=== PATIENT | male | born 1940 | race Caucasian/White ===

== ENCOUNTER 2019-04-05 12:00 | Inpatient (IN) ==
[2019-04-05] MEDS ORDERED: Mag Hydrox/Al Hydrox/Simeth 30 ML UDC PO PRN (17:24)
[2019-04-05] MEDS ORDERED: Sennosides/Docusate Sodium TABLET PO PRN (17:25)
[2019-04-05] MEDS: Melatonin 3 MG TABLET PO PRN (20:57)
[2019-04-05] MEDS: cloNIDine HCl 0.1 MG TABLET PO PRN (20:58)
[2019-04-05] MEDS: *HR* Heparin 5,000 UNIT/ML VIAL SQ SCH (20:58)
[2019-04-05] MEDS: Clobetasol Propionate 0.05% 15 GM Cream Tube TP SCH (21:05)
[2019-04-06] MEDS: *HR* Heparin 5,000 UNIT/ML VIAL SQ SCH ×3 (05:04→20:03)
[2019-04-06 05:55] LABS: Basophils # 0.1 K/mcL (0.0-0.2); Basophils % 0.4 %; Eosinophils # 0.4 K/mcL (0.0-0.6); Eosinophils % 2.4 %; Hemoglobin 11.1 g/dL (12.9-16.9); Immature Granulocytes % 0.7 % (0-4); Lymphocytes # 1.1 K/mcL (0.6-4.6); Lymphocytes % 7.1 %; Mean Corpuscular HGB Conc 34.7 g/dL (31.6-35.5); Mean Corpuscular Hemoglobin 31.4 pg (28.0-33.3); Mean Corpuscular Volume 90.4 fL (83.0-100.0); Mean Platelet Volume 10.3 fL (9.4-12.4); Monocytes # 1.3 K/mcL (0.0-1.3); Neutrophils # 12.9 K/mcL (1.6-8.9); Platelet Count 143 K/mcL (140-400); Red Blood Count 3.54 M/mcL (4.19-5.50); Red Cell Distribution Width 12.8 % (11.5-14.5); Segmented Neutrophils % 81.4 %; White Blood Count 15.8 K/mcL (4.3-11.1)
[2019-04-06 06:01] LABS: INR 1.3; Prothrombin Time 14.5 Seconds (9.4-12.1)
[2019-04-06 06:02] LABS: Activated Partial Thrombo Time 33.3 Seconds (26.0-36.0)
[2019-04-06 06:10] LABS: Calcium 8.6 mg/dL (8.6-10.3); Magnesium 2.1 mg/dL (1.6-2.6); Potassium 4.3 mEq/L (3.5-5.1)
[2019-04-06 06:23] LABS: Thyroid Stimulating Hormone 2.945 mcIU/mL (0.340-5.600)
[2019-04-06] MEDS ORDERED: Nicotine 21 MG PATCH.TD24 TD SCH (09:00)
[2019-04-06] MEDS: Clobetasol Propionate 0.05% 15 GM Cream Tube TP SCH ×2 (09:21→20:03)
[2019-04-06] MEDS: amLODIPine 5 MG TABLET PO SCH (09:29)
[2019-04-06] MEDS: Aspirin 325 MG TABLET PO SCH (09:29)
[2019-04-06] MEDS: 0.9 % Sodium Chloride 1,000 ML IVC SCH (15:48)
[2019-04-06] MEDS: Melatonin 3 MG TABLET PO PRN (20:03)
[2019-04-07] MEDS ORDERED: Furosemide 40 MG/4 ML VIAL IVP ONE (00:07)
[2019-04-07] MEDS ORDERED: Furosemide 40 MG/4 ML VIAL ONE (00:09)
[2019-04-07] MEDS: cloNIDine HCl 0.1 MG TABLET PO PRN (00:16)
[2019-04-07 00:24] LABS: Basophils # 0.1 K/mcL (0.0-0.2); Basophils % 0.5 %; Eosinophils # 0.7 K/mcL (0.0-0.6); Eosinophils % 3.8 %; Hematocrit 35.4 % (37.5-50.1); Hemoglobin 12.3 g/dL (12.9-16.9); Immature Granulocytes % 0.6 % (0-4); Lymphocytes # 1.8 K/mcL (0.6-4.6); Lymphocytes % 9.5 %; Mean Corpuscular HGB Conc 34.7 g/dL (31.6-35.5); Mean Corpuscular Hemoglobin 31.3 pg (28.0-33.3); Mean Corpuscular Volume 90.1 fL (83.0-100.0); Mean Platelet Volume 10.5 fL (9.4-12.4); Monocytes # 1.5 K/mcL (0.0-1.3); Monocytes % 7.9 %; Neutrophils # 14.4 K/mcL (1.6-8.9); Platelet Count 175 K/mcL (140-400); Red Blood Count 3.93 M/mcL (4.19-5.50); Red Cell Distribution Width 12.6 % (11.5-14.5); Segmented Neutrophils % 77.7 %; White Blood Count 18.5 K/mcL (4.3-11.1)
[2019-04-07 00:43] LABS: Calcium 8.7 mg/dL (8.6-10.3); Potassium 4.4 mEq/L (3.5-5.1)
[2019-04-07 01:26] LABS: Bilirubin,Urine Negative (Negative); Blood,Urine Small (Negative); Clarity,Urine Clear (Clear); Color,Urine Yellow (Yellow); Glucose,Urine (UA) Normal (Normal); Ketones,Urine Negative (Negative); Leukocyte Esterase,Urine Negative (Negative); Nitrite,Urine Negative (Negative); Protein,Urine 100 mg/dL (Neg-Trace); Specific Gravity,Urine 1.015 (1.010-1.025); Urobilinogen,Urine Normal (Normal)
[2019-04-07 01:37] LABS: Bacteria,Urine Few per hpf (None-Few); Granular Casts,Urine Few per lpf (None Seen); Squamous Epithelial Cell,Urine Few per lpf (None-Few); WBC,Urine 0-3 per hpf (0-3)
[2019-04-07] MEDS: *HR* Heparin 5,000 UNIT/ML VIAL SQ SCH ×2 (05:09→14:12)
[2019-04-07 06:25] LABS: Basophils # 0.1 K/mcL (0.0-0.2); Basophils % 0.3 %; Eosinophils # 0.2 K/mcL (0.0-0.6); Eosinophils % 1.3 %; Hemoglobin 11.4 g/dL (12.9-16.9); Immature Granulocytes % 0.5 % (0-4); Lymphocytes # 0.9 K/mcL (0.6-4.6); Lymphocytes % 6.1 %; Mean Corpuscular HGB Conc 34.5 g/dL (31.6-35.5); Mean Corpuscular Hemoglobin 31.3 pg (28.0-33.3); Mean Corpuscular Volume 90.7 fL (83.0-100.0); Mean Platelet Volume 10.3 fL (9.4-12.4); Monocytes # 1.3 K/mcL (0.0-1.3); Monocytes % 8.4 %; Neutrophils # 12.5 K/mcL (1.6-8.9); Platelet Count 163 K/mcL (140-400); Red Blood Count 3.64 M/mcL (4.19-5.50); Red Cell Distribution Width 12.7 % (11.5-14.5); Segmented Neutrophils % 83.4 %
[2019-04-07 06:45] LABS: Albumin 3.5 g/dL (3.5-5.7); Albumin/Globulin Ratio 1.2 (1.1-2.2); Bilirubin,Total 0.6 mg/dL (0.3-1.0); Calcium 8.4 mg/dL (8.6-10.3); Globulin 2.9 g/dL (2.4-3.5); Magnesium 2.2 mg/dL (1.6-2.6); Potassium 4.4 mEq/L (3.5-5.1); Total Protein 6.4 g/dL (6.4-8.9)
[2019-04-07] MEDS: 0.9 % Sodium Chloride 1,000 ML IVC SCH (07:08)
[2019-04-07] MEDS: Aspirin 325 MG TABLET PO SCH (08:07)
[2019-04-07] MEDS: Clobetasol Propionate 0.05% 15 GM Cream Tube TP SCH (08:07)
[2019-04-07] MEDS: amLODIPine 5 MG TABLET PO SCH (08:07)
[2019-04-07 15:37] VITALS: BP 155/72
[2019-04-10 09:07] LABS: Troponin I 0.05 ng/mL (< 0.04)
== END 2019-04-07 17:05 | disposition short-term general hospital (02) | DRG 57 ==
LOC: INPGRE 16:44

== ENCOUNTER 2019-04-13 11:34 | Inpatient (IN) ==
[2019-04-13] MEDS ORDERED: Mag Hydrox/Al Hydrox/Simeth 30 ML UDC PO PRN (15:57)
[2019-04-13] MEDS ORDERED: Ondansetron ODT 4 MG TAB.RAPDIS SL PRN (15:57)
[2019-04-13] MEDS ORDERED: levoFLOXacin 500 MG TABLET PO SCH (16:00)
[2019-04-13] MEDS ORDERED: metroNIDAZOLE 500 MG TABLET PO SCH (16:15)
[2019-04-13] MEDS: *HR* Heparin 5,000 UNIT/ML VIAL SQ SCH ×2 (17:09→23:50)
[2019-04-13 19:28] LABS: ABG Base Excess -2 mEq/L (-2 to 3); ABG HCO3 23 mEq/L (21-27); ABG Oxygen Saturation 96 % (95-98); ABG PCO2 39 mmHg (35-45); ABG PH 7.38 pH Units (7.32-7.45); ABG PO2 80 mmHg (85-104); ABG TCO2 24 mEq/L (20-26)
[2019-04-13] MEDS: Sennosides/Docusate Sodium TABLET PO SCH (22:03)
[2019-04-13] MEDS: metroNIDAZOLE 500 MG TABLET PO SCH (22:03)
[2019-04-13] MEDS: Clobetasol Propionate 0.05% 15 GM Cream Tube TP SCH (22:04)
[2019-04-14 05:36] LABS: Albumin 3.3 g/dL (3.5-5.7); Albumin/Globulin Ratio 1.1 (1.1-2.2); Bilirubin,Total 0.5 mg/dL (0.3-1.0); Calcium 8.7 mg/dL (8.6-10.3); Magnesium 2.8 mg/dL (1.6-2.6); Potassium 4.6 mEq/L (3.5-5.1); Total Protein 6.3 g/dL (6.4-8.9)
[2019-04-14 05:40] LABS: Basophils # 0.1 K/mcL (0.0-0.2); Basophils % 0.7 %; Eosinophils % 5.9 %; Hematocrit 34.3 % (37.5-50.1); Hemoglobin 11.7 g/dL (12.9-16.9); Immature Granulocytes % 1.2 % (0-4); Lymphocytes # 1.6 K/mcL (0.6-4.6); Lymphocytes % 9.6 %; Mean Corpuscular HGB Conc 34.1 g/dL (31.6-35.5); Mean Corpuscular Hemoglobin 30.7 pg (28.0-33.3); Mean Platelet Volume 10.1 fL (9.4-12.4); Neutrophils # 12.9 K/mcL (1.6-8.9); Platelet Count 347 K/mcL (140-400); Red Blood Count 3.81 M/mcL (4.19-5.50); Red Cell Distribution Width 13.1 % (11.5-14.5); Segmented Neutrophils % 76.6 %; White Blood Count 16.8 K/mcL (4.3-11.1)
[2019-04-14] MEDS ORDERED: levoFLOXacin 750 MG TABLET PO SCH (09:00)
[2019-04-14] MEDS ORDERED: levoFLOXacin 750 MG TABLET PO ONE (10:00)
[2019-04-14] MEDS: Aspirin Enteric Coated 325 MG Tablet PO SCH (10:02)
[2019-04-14] MEDS: *HR* Heparin 5,000 UNIT/ML VIAL SQ SCH ×2 (10:03→17:34)
[2019-04-14] MEDS: metroNIDAZOLE 500 MG TABLET PO SCH ×3 (10:04→22:11)
[2019-04-14] MEDS: Folic Acid 1 MG TABLET PO SCH (10:05)
[2019-04-14] MEDS: Cyanocobalamin (B-12) 1,000 MCG TABLET PO SCH (10:05)
[2019-04-14] MEDS: amLODIPine 5 MG TABLET PO SCH (10:07)
[2019-04-14] MEDS: Sennosides/Docusate Sodium TABLET PO SCH ×2 (10:09→22:11)
[2019-04-14] MEDS: Clobetasol Propionate 0.05% 15 GM Cream Tube TP SCH ×2 (10:14→22:12)
[2019-04-14] MEDS: 0.9 % Sodium Chloride 1,000 ML IVC SCH (11:14)
[2019-04-15] MEDS: *HR* Heparin 5,000 UNIT/ML VIAL SQ SCH ×4 (00:31→23:55)
[2019-04-15 05:55] LABS: Hematocrit 32.4 % (37.5-50.1); Mean Corpuscular Volume 91.3 fL (83.0-100.0); Mean Platelet Volume 10.1 fL (9.4-12.4); Platelet Count 346 K/mcL (140-400); Red Blood Count 3.55 M/mcL (4.19-5.50); White Blood Count 15.3 K/mcL (4.3-11.1)
[2019-04-15 06:10] LABS: Calcium 8.6 mg/dL (8.6-10.3); Potassium 4.5 mEq/L (3.5-5.1)
[2019-04-15] MEDS: 0.9 % Sodium Chloride 1,000 ML IVC SCH (06:12)
[2019-04-15] MEDS: metroNIDAZOLE 500 MG TABLET PO SCH ×2 (08:02→16:25)
[2019-04-15] MEDS: Folic Acid 1 MG TABLET PO SCH (08:02)
[2019-04-15] MEDS: Sennosides/Docusate Sodium TABLET PO SCH ×2 (08:03→21:01)
[2019-04-15] MEDS: amLODIPine 5 MG TABLET PO SCH (08:03)
[2019-04-15] MEDS: Cyanocobalamin (B-12) 1,000 MCG TABLET PO SCH (08:03)
[2019-04-15] MEDS: Clobetasol Propionate 0.05% 15 GM Cream Tube TP SCH ×2 (08:19→21:02)
[2019-04-15] MEDS: Aspirin Enteric Coated 325 MG Tablet PO SCH (08:19)
[2019-04-16] MEDS: 0.9 % Sodium Chloride 1,000 ML IVC SCH ×2 (01:07→19:55)
[2019-04-16 05:10] LABS: Hematocrit 32.5 % (37.5-50.1); Mean Corpuscular HGB Conc 33.8 g/dL (31.6-35.5); Mean Corpuscular Hemoglobin 30.6 pg (28.0-33.3); Mean Corpuscular Volume 90.5 fL (83.0-100.0); Mean Platelet Volume 10.2 fL (9.4-12.4); Platelet Count 380 K/mcL (140-400); Red Blood Count 3.59 M/mcL (4.19-5.50); Red Cell Distribution Width 13.1 % (11.5-14.5); White Blood Count 15.8 K/mcL (4.3-11.1)
[2019-04-16 05:27] LABS: Calcium 8.5 mg/dL (8.6-10.3); Potassium 4.7 mEq/L (3.5-5.1)
[2019-04-16] MEDS: Sennosides/Docusate Sodium TABLET PO SCH ×2 (07:30→19:57)
[2019-04-16] MEDS: *HR* Heparin 5,000 UNIT/ML VIAL SQ SCH ×3 (07:30→23:34)
[2019-04-16] MEDS: amLODIPine 5 MG TABLET PO SCH (07:30)
[2019-04-16] MEDS: Aspirin Enteric Coated 325 MG Tablet PO SCH (07:31)
[2019-04-16] MEDS: Cyanocobalamin (B-12) 1,000 MCG TABLET PO SCH (07:31)
[2019-04-16] MEDS: Folic Acid 1 MG TABLET PO SCH (07:31)
[2019-04-16] MEDS: cloNIDine HCl 0.1 MG TABLET PO PRN (07:42)
[2019-04-16] MEDS: Clobetasol Propionate 0.05% 15 GM Cream Tube TP SCH ×2 (07:43→19:57)
[2019-04-17 06:08] LABS: Basophils # 0.1 K/mcL (0.0-0.2); Basophils % 0.7 %; Eosinophils # 0.9 K/mcL (0.0-0.6); Eosinophils % 6.1 %; Hematocrit 32.7 % (37.5-50.1); Immature Granulocytes % 1.6 % (0-4); Lymphocytes # 1.5 K/mcL (0.6-4.6); Lymphocytes % 10.7 %; Mean Corpuscular HGB Conc 33.6 g/dL (31.6-35.5); Mean Corpuscular Hemoglobin 31.1 pg (28.0-33.3); Mean Corpuscular Volume 92.4 fL (83.0-100.0); Mean Platelet Volume 10.4 fL (9.4-12.4); Monocytes # 1.1 K/mcL (0.0-1.3); Monocytes % 7.5 %; Platelet Count 349 K/mcL (140-400); Red Blood Count 3.54 M/mcL (4.19-5.50); Red Cell Distribution Width 13.3 % (11.5-14.5); Segmented Neutrophils % 73.4 %; White Blood Count 14.1 K/mcL (4.3-11.1)
[2019-04-17 06:14] LABS: Neutrophils # 10.4 K/mcL (1.6-8.9)
[2019-04-17 06:43] LABS: Albumin 3.1 g/dL (3.5-5.7); Albumin/Globulin Ratio 1.1 (1.1-2.2); Bilirubin,Total 0.4 mg/dL (0.3-1.0); Calcium 8.3 mg/dL (8.6-10.3); Globulin 2.9 g/dL (2.4-3.5); Magnesium 2.5 mg/dL (1.6-2.6); Potassium 4.7 mEq/L (3.5-5.1)
[2019-04-17] MEDS: amLODIPine 5 MG TABLET PO SCH (09:32)
[2019-04-17] MEDS: Cyanocobalamin (B-12) 1,000 MCG TABLET PO SCH (09:32)
[2019-04-17] MEDS: Aspirin Enteric Coated 325 MG Tablet PO SCH (09:33)
[2019-04-17] MEDS: Clobetasol Propionate 0.05% 15 GM Cream Tube TP SCH ×2 (09:33→20:54)
[2019-04-17] MEDS: Sennosides/Docusate Sodium TABLET PO SCH ×2 (09:33→20:46)
[2019-04-17] MEDS: *HR* Heparin 5,000 UNIT/ML VIAL SQ SCH ×2 (09:33→17:05)
[2019-04-17] MEDS: Folic Acid 1 MG TABLET PO SCH (09:33)
[2019-04-17] MEDS: 0.9 % Sodium Chloride 1,000 ML IVC SCH (12:11)
[2019-04-17] MEDS: cloNIDine HCl 0.1 MG TABLET PO PRN (20:46)
[2019-04-18] MEDS: *HR* Heparin 5,000 UNIT/ML VIAL SQ SCH ×3 (01:13→16:17)
[2019-04-18] MEDS: 0.9 % Sodium Chloride 1,000 ML IVC SCH ×2 (03:10→16:21)
[2019-04-18 05:33] LABS: Hematocrit 29.8 % (37.5-50.1); Mean Corpuscular HGB Conc 33.6 g/dL (31.6-35.5); Mean Corpuscular Hemoglobin 31.3 pg (28.0-33.3); Mean Corpuscular Volume 93.4 fL (83.0-100.0); Mean Platelet Volume 10.1 fL (9.4-12.4); Platelet Count 312 K/mcL (140-400); Red Blood Count 3.19 M/mcL (4.19-5.50); Red Cell Distribution Width 13.6 % (11.5-14.5); White Blood Count 11.9 K/mcL (4.3-11.1)
[2019-04-18 05:50] LABS: Potassium 4.9 mEq/L (3.5-5.1)
[2019-04-18] MEDS: Clobetasol Propionate 0.05% 15 GM Cream Tube TP SCH ×2 (08:16→22:09)
[2019-04-18] MEDS: Aspirin Enteric Coated 325 MG Tablet PO SCH (08:24)
[2019-04-18] MEDS: amLODIPine 5 MG TABLET PO SCH (08:25)
[2019-04-18] MEDS: Folic Acid 1 MG TABLET PO SCH (08:25)
[2019-04-18] MEDS: Sennosides/Docusate Sodium TABLET PO SCH ×2 (08:27→22:09)
[2019-04-18] MEDS: Cyanocobalamin (B-12) 1,000 MCG TABLET PO SCH (08:28)
[2019-04-18] MEDS: Cholecalciferol (D-3) 1,000 UNIT (25MCG) TABLET PO SCH (12:59)
[2019-04-19] MEDS: *HR* Heparin 5,000 UNIT/ML VIAL SQ SCH ×3 (00:25→16:14)
[2019-04-19 05:26] LABS: Hematocrit 31.2 % (37.5-50.1); Hemoglobin 10.4 g/dL (12.9-16.9); Mean Corpuscular HGB Conc 33.3 g/dL (31.6-35.5); Mean Corpuscular Volume 92.9 fL (83.0-100.0); Mean Platelet Volume 10.1 fL (9.4-12.4); Platelet Count 316 K/mcL (140-400); Red Blood Count 3.36 M/mcL (4.19-5.50); Red Cell Distribution Width 13.8 % (11.5-14.5); White Blood Count 12.7 K/mcL (4.3-11.1)
[2019-04-19 05:40] LABS: Calcium 8.2 mg/dL (8.6-10.3); Potassium 4.7 mEq/L (3.5-5.1)
[2019-04-19] MEDS: Cholecalciferol (D-3) 1,000 UNIT (25MCG) TABLET PO SCH (08:20)
[2019-04-19] MEDS: Folic Acid 1 MG TABLET PO SCH (08:21)
[2019-04-19] MEDS: amLODIPine 5 MG TABLET PO SCH (08:21)
[2019-04-19] MEDS: Cyanocobalamin (B-12) 1,000 MCG TABLET PO SCH (08:21)
[2019-04-19] MEDS: Clobetasol Propionate 0.05% 15 GM Cream Tube TP SCH ×2 (08:21→21:48)
[2019-04-19] MEDS: Sennosides/Docusate Sodium TABLET PO SCH ×2 (08:21→21:48)
[2019-04-19] MEDS: Aspirin Enteric Coated 325 MG Tablet PO SCH (08:21)
[2019-04-19] MEDS: 0.9 % Sodium Chloride 1,000 ML IVC SCH (12:23)
[2019-04-19] MEDS: cloNIDine HCl 0.1 MG TABLET PO PRN (16:14)
[2019-04-20] MEDS: *HR* Heparin 5,000 UNIT/ML VIAL SQ SCH ×4 (00:29→23:05)
[2019-04-20] MEDS: Folic Acid 1 MG TABLET PO SCH (09:28)
[2019-04-20] MEDS: Cholecalciferol (D-3) 1,000 UNIT (25MCG) TABLET PO SCH (09:28)
[2019-04-20] MEDS: Aspirin Enteric Coated 325 MG Tablet PO SCH (09:28)
[2019-04-20] MEDS: amLODIPine 5 MG TABLET PO SCH (09:28)
[2019-04-20] MEDS: Sennosides/Docusate Sodium TABLET PO SCH ×2 (09:28→21:34)
[2019-04-20] MEDS: Cyanocobalamin (B-12) 1,000 MCG TABLET PO SCH (09:28)
[2019-04-20] MEDS: Clobetasol Propionate 0.05% 15 GM Cream Tube TP SCH ×2 (09:29→21:34)
[2019-04-20 10:58] LABS: Calcium 8.3 mg/dL (8.6-10.3); Potassium 4.9 mEq/L (3.5-5.1)
[2019-04-20] MEDS: Melatonin 3 MG TABLET PO PRN (21:34)
[2019-04-20] MEDS: Furosemide 40 MG/4 ML VIAL IVP ONE (23:05)
[2019-04-20 23:17] LABS: Bilirubin,Urine Negative (Negative); Blood,Urine Small (Negative); Clarity,Urine Clear (Clear); Color,Urine Yellow (Yellow); Glucose,Urine (UA) Normal (Normal); Ketones,Urine Negative (Negative); Leukocyte Esterase,Urine Negative (Negative); Nitrite,Urine Negative (Negative); Protein,Urine 100 mg/dL (Neg-Trace); Urobilinogen,Urine Normal (Normal)
[2019-04-20 23:24] LABS: Hyaline Casts,Urine Few per lpf (None-Few); RBC,Urine 0-3 per hpf (0-3); Squamous Epithelial Cell,Urine Few per lpf (None-Few); WBC,Urine 0-3 per hpf (0-3)
[2019-04-20 23:25] LABS: Bacteria,Urine Many per hpf (None-Few); Granular Casts,Urine Few per lpf (None Seen)
[2019-04-21] MEDS ORDERED: Furosemide 40 MG/4 ML VIAL ONE (01:09)
[2019-04-21] MEDS: Furosemide 40 MG/4 ML VIAL IVP ONE (01:11)
[2019-04-21] MEDS: *HR* Heparin 5,000 UNIT/ML VIAL SQ SCH ×2 (09:27→17:04)
[2019-04-21] MEDS: Cholecalciferol (D-3) 1,000 UNIT (25MCG) TABLET PO SCH (09:30)
[2019-04-21] MEDS: Sennosides/Docusate Sodium TABLET PO SCH ×2 (09:30→21:02)
[2019-04-21] MEDS: Aspirin Enteric Coated 325 MG Tablet PO SCH (09:30)
[2019-04-21] MEDS: Folic Acid 1 MG TABLET PO SCH (09:31)
[2019-04-21] MEDS: Cyanocobalamin (B-12) 1,000 MCG TABLET PO SCH (09:31)
[2019-04-21] MEDS: Clobetasol Propionate 0.05% 15 GM Cream Tube TP SCH ×2 (09:32→21:05)
[2019-04-21] MEDS: amLODIPine 5 MG TABLET PO SCH (09:32)
[2019-04-21 11:07] LABS: Basophils # 0.1 K/mcL (0.0-0.2); Basophils % 0.7 %; Eosinophils # 0.8 K/mcL (0.0-0.6); Eosinophils % 6.6 %; Hematocrit 31.6 % (37.5-50.1); Hemoglobin 10.7 g/dL (12.9-16.9); Immature Granulocytes % 0.6 % (0-4); Lymphocytes # 0.8 K/mcL (0.6-4.6); Mean Corpuscular HGB Conc 33.9 g/dL (31.6-35.5); Mean Corpuscular Volume 91.6 fL (83.0-100.0); Mean Platelet Volume 10.1 fL (9.4-12.4); Monocytes # 0.6 K/mcL (0.0-1.3); Monocytes % 4.9 %; Platelet Count 271 K/mcL (140-400); Red Blood Count 3.45 M/mcL (4.19-5.50); Red Cell Distribution Width 14.1 % (11.5-14.5); Segmented Neutrophils % 80.2 %
[2019-04-21 11:09] LABS: Neutrophils # 9.6 K/mcL (1.6-8.9)
[2019-04-21 11:25] LABS: Albumin 3.3 g/dL (3.5-5.7); Albumin/Globulin Ratio 1.1 (1.1-2.2); Bilirubin,Total 0.4 mg/dL (0.3-1.0); Calcium 8.5 mg/dL (8.6-10.3); Globulin 2.9 g/dL (2.4-3.5); Potassium 4.8 mEq/L (3.5-5.1); Total Protein 6.2 g/dL (6.4-8.9)
[2019-04-21] MEDS: Melatonin 3 MG TABLET PO PRN (21:03)
[2019-04-22] MEDS: *HR* Heparin 5,000 UNIT/ML VIAL SQ SCH ×3 (01:17→17:17)
[2019-04-22] MEDS: Cholecalciferol (D-3) 1,000 UNIT (25MCG) TABLET PO SCH (10:14)
[2019-04-22] MEDS: Aspirin Enteric Coated 325 MG Tablet PO SCH (10:14)
[2019-04-22] MEDS: Cyanocobalamin (B-12) 1,000 MCG TABLET PO SCH (10:15)
[2019-04-22] MEDS: Sennosides/Docusate Sodium TABLET PO SCH ×2 (10:15→21:37)
[2019-04-22] MEDS: amLODIPine 5 MG TABLET PO SCH (10:15)
[2019-04-22] MEDS: Folic Acid 1 MG TABLET PO SCH (10:15)
[2019-04-22] MEDS: Clobetasol Propionate 0.05% 15 GM Cream Tube TP SCH ×2 (10:19→21:37)
[2019-04-22] MEDS: Melatonin 3 MG TABLET PO PRN (21:37)
[2019-04-23] MEDS: *HR* Heparin 5,000 UNIT/ML VIAL SQ SCH ×3 (00:45→18:04)
[2019-04-23 05:10] LABS: Hematocrit 31.5 % (37.5-50.1); Hemoglobin 10.5 g/dL (12.9-16.9); Mean Corpuscular HGB Conc 33.3 g/dL (31.6-35.5); Mean Corpuscular Volume 92.9 fL (83.0-100.0); Mean Platelet Volume 11.1 fL (9.4-12.4); Platelet Count 228 K/mcL (140-400); Red Blood Count 3.39 M/mcL (4.19-5.50); Red Cell Distribution Width 14.2 % (11.5-14.5); White Blood Count 12.8 K/mcL (4.3-11.1)
[2019-04-23 05:28] LABS: Calcium 8.6 mg/dL (8.6-10.3); Potassium 4.9 mEq/L (3.5-5.1)
[2019-04-23] MEDS: Aspirin Enteric Coated 325 MG Tablet PO SCH (09:58)
[2019-04-23] MEDS: Cholecalciferol (D-3) 1,000 UNIT (25MCG) TABLET PO SCH (09:58)
[2019-04-23] MEDS: Folic Acid 1 MG TABLET PO SCH (09:58)
[2019-04-23] MEDS: Sennosides/Docusate Sodium TABLET PO SCH ×2 (09:58→20:42)
[2019-04-23] MEDS: amLODIPine 5 MG TABLET PO SCH (09:58)
[2019-04-23] MEDS: Cyanocobalamin (B-12) 1,000 MCG TABLET PO SCH (09:58)
[2019-04-23] MEDS: Clobetasol Propionate 0.05% 15 GM Cream Tube TP SCH ×2 (09:59→20:42)
[2019-04-23] MEDS: Melatonin 3 MG TABLET PO PRN (20:42)
[2019-04-24] MEDS: *HR* Heparin 5,000 UNIT/ML VIAL SQ SCH ×4 (00:24→23:04)
[2019-04-24 05:33] LABS: Basophils # 0.1 K/mcL (0.0-0.2); Basophils % 0.5 %; Eosinophils # 1.1 K/mcL (0.0-0.6); Eosinophils % 7.9 %; Hematocrit 30.1 % (37.5-50.1); Hemoglobin 10.1 g/dL (12.9-16.9); Immature Granulocytes % 0.5 % (0-4); Mean Corpuscular HGB Conc 33.6 g/dL (31.6-35.5); Mean Corpuscular Hemoglobin 31.1 pg (28.0-33.3); Mean Corpuscular Volume 92.6 fL (83.0-100.0); Mean Platelet Volume 10.4 fL (9.4-12.4); Monocytes # 0.9 K/mcL (0.0-1.3); Monocytes % 6.4 %; Platelet Count 203 K/mcL (140-400); Red Blood Count 3.25 M/mcL (4.19-5.50); Red Cell Distribution Width 14.4 % (11.5-14.5); Segmented Neutrophils % 77.7 %; White Blood Count 14.1 K/mcL (4.3-11.1)
[2019-04-24 05:50] LABS: Albumin 3.4 g/dL (3.5-5.7); Albumin/Globulin Ratio 1.2 (1.1-2.2); Bilirubin,Total 0.4 mg/dL (0.3-1.0); Calcium 8.6 mg/dL (8.6-10.3); Globulin 2.8 g/dL (2.4-3.5); Magnesium 2.4 mg/dL (1.6-2.6); Potassium 5.6 mEq/L (3.5-5.1); Total Protein 6.2 g/dL (6.4-8.9)
[2019-04-24] MEDS: Folic Acid 1 MG TABLET PO SCH (08:26)
[2019-04-24] MEDS: Cyanocobalamin (B-12) 1,000 MCG TABLET PO SCH (08:26)
[2019-04-24] MEDS: Aspirin Enteric Coated 325 MG Tablet PO SCH (08:26)
[2019-04-24] MEDS: Sennosides/Docusate Sodium TABLET PO SCH ×2 (08:26→21:52)
[2019-04-24] MEDS: Cholecalciferol (D-3) 1,000 UNIT (25MCG) TABLET PO SCH (08:26)
[2019-04-24] MEDS: amLODIPine 5 MG TABLET PO SCH (08:26)
[2019-04-24] MEDS: Clobetasol Propionate 0.05% 15 GM Cream Tube TP SCH ×2 (08:27→21:52)
[2019-04-24] MEDS: Melatonin 3 MG TABLET PO PRN (21:52)
[2019-04-25] MEDS ORDERED: Furosemide 80 MG in 0.9 % Sodium Chloride 50 ML IVPB ONE (00:40)
[2019-04-25] MEDS ORDERED: Furosemide 40 MG/4 ML VIAL IVP ONE ×2 (00:45→13:43)
[2019-04-25] MEDS: Albuterol 2.5 MG/3 ML NEBULIZER IH PRN (01:31)
[2019-04-25 05:12] LABS: Hematocrit 32.3 % (37.5-50.1); Hemoglobin 10.8 g/dL (12.9-16.9); Mean Corpuscular HGB Conc 33.4 g/dL (31.6-35.5); Mean Corpuscular Hemoglobin 31.4 pg (28.0-33.3); Mean Corpuscular Volume 93.9 fL (83.0-100.0); Mean Platelet Volume 10.9 fL (9.4-12.4); Platelet Count 213 K/mcL (140-400); Red Blood Count 3.44 M/mcL (4.19-5.50); Red Cell Distribution Width 14.7 % (11.5-14.5); White Blood Count 17.2 K/mcL (4.3-11.1)
[2019-04-25 05:28] LABS: Albumin 3.6 g/dL (3.5-5.7); Albumin/Globulin Ratio 1.2 (1.1-2.2); Bilirubin,Total 0.5 mg/dL (0.3-1.0); Calcium 8.9 mg/dL (8.6-10.3); Globulin 3.1 g/dL (2.4-3.5); Magnesium 2.6 mg/dL (1.6-2.6); Potassium 6.4 mEq/L (3.5-5.1); Total Protein 6.7 g/dL (6.4-8.9)
[2019-04-25 05:29] LABS: ABG Base Excess 2 mEq/L (-2 to 3); ABG HCO3 28 mEq/L (21-27); ABG Oxygen Saturation 97 % (95-98); ABG PCO2 45 mmHg (35-45); ABG PH 7.39 pH Units (7.32-7.45); ABG PO2 89 mmHg (85-104); ABG TCO2 29 mEq/L (20-26)
[2019-04-25] MEDS: *HR* Heparin 5,000 UNIT/ML VIAL SQ SCH ×2 (10:20→16:19)
[2019-04-25] MEDS: amLODIPine 5 MG TABLET PO SCH (10:20)
[2019-04-25] MEDS: Cyanocobalamin (B-12) 1,000 MCG TABLET PO SCH (10:21)
[2019-04-25] MEDS: Aspirin Enteric Coated 325 MG Tablet PO SCH (10:21)
[2019-04-25] MEDS: Folic Acid 1 MG TABLET PO SCH (10:21)
[2019-04-25] MEDS: Cholecalciferol (D-3) 1,000 UNIT (25MCG) TABLET PO SCH (10:21)
[2019-04-25] MEDS: Sennosides/Docusate Sodium TABLET PO SCH ×2 (10:21→21:27)
[2019-04-25] MEDS: Clobetasol Propionate 0.05% 15 GM Cream Tube TP SCH ×2 (10:21→21:31)
[2019-04-25] MEDS: cloNIDine HCl 0.1 MG TABLET PO PRN (10:25)
[2019-04-25] MEDS ORDERED: FUROSEMIDE IV ONE (12:16)
[2019-04-25] MEDS ORDERED: D5 IV ONE (12:16)
[2019-04-25] MEDS ORDERED: WATER IV ONE (12:16)
[2019-04-26] MEDS: *HR* Heparin 5,000 UNIT/ML VIAL SQ SCH ×2 (00:15→09:25)
[2019-04-26] MEDS: cloNIDine HCl 0.1 MG TABLET PO PRN (04:18)
[2019-04-26] MEDS: Albuterol 2.5 MG/3 ML NEBULIZER IH PRN (05:45)
[2019-04-26] MEDS: Cyanocobalamin (B-12) 1,000 MCG TABLET PO SCH (09:24)
[2019-04-26] MEDS: Folic Acid 1 MG TABLET PO SCH (09:24)
[2019-04-26] MEDS: amLODIPine 5 MG TABLET PO SCH (09:24)
[2019-04-26] MEDS: Sennosides/Docusate Sodium TABLET PO SCH (09:24)
[2019-04-26] MEDS: Aspirin Enteric Coated 325 MG Tablet PO SCH (09:24)
[2019-04-26 09:52] LABS: Basophils # 0.1 K/mcL (0.0-0.2); Basophils % 0.6 %; Eosinophils # 0.9 K/mcL (0.0-0.6); Hematocrit 31.6 % (37.5-50.1); Hemoglobin 10.6 g/dL (12.9-16.9); Immature Granulocytes % 0.6 % (0-4); Lymphocytes # 0.9 K/mcL (0.6-4.6); Lymphocytes % 7.3 %; Mean Corpuscular HGB Conc 33.5 g/dL (31.6-35.5); Mean Corpuscular Hemoglobin 31.3 pg (28.0-33.3); Mean Corpuscular Volume 93.2 fL (83.0-100.0); Mean Platelet Volume 10.9 fL (9.4-12.4); Monocytes # 0.8 K/mcL (0.0-1.3); Monocytes % 6.4 %; Neutrophils # 9.9 K/mcL (1.6-8.9); Platelet Count 176 K/mcL (140-400); Red Blood Count 3.39 M/mcL (4.19-5.50); Red Cell Distribution Width 14.7 % (11.5-14.5); Segmented Neutrophils % 78.1 %; White Blood Count 12.7 K/mcL (4.3-11.1)
[2019-04-26 09:57] LABS: Potassium 4.6 mEq/L (3.5-5.1)
[2019-04-26] MEDS: Clobetasol Propionate 0.05% 15 GM Cream Tube TP SCH (11:21)
[2019-04-26] MEDS: Cholecalciferol (D-3) 1,000 UNIT (25MCG) TABLET PO SCH (11:21)
[2019-04-26 11:39] VITALS: BP 174/80
== END 2019-04-26 12:35 | disposition short-term general hospital (02) | DRG 56 ==
LOC: INPGRE 14:54